=== PATIENT | male | born 1985 | race Hispanic/Latino ===

== ENCOUNTER 2019-01-21 05:25 | Day surgery (SDC) | payer MEDICAID ==
[~2019-01-21] VITALS: Ht 154.9 cm; Wt 49.9 kg
[~2019-01-21 05:25] MED LIST: NAPR-1023 PO; PANT40TA PO; SUCR1ORA5 PO
[2019-01-21] MEDS ORDERED: SODIUM CHLORIDE 0.9% 1000ML 1,000 ML IV ONE (05:51)
[2019-01-21 06:00] VITALS: BP 102/74
[2019-01-21 08:24] VITALS: BP 95/53
[2019-01-21 08:30] VITALS: BP 114/70
[2019-01-21 08:39] VITALS: BP 109/69
== END 2019-01-21 08:56 | disposition home or self-care (01) ==
LOC: DAH 05:25 → ENDO 05:25
PROVIDERS: ATTEND Internal Medicine
DX: K29.50 Unspecified chronic gastritis without bleeding (principal); K21.0 Gastro-esophageal reflux disease with esophagitis; K44.9 Diaphragmatic hernia without obstruction or gangrene; K31.89 Other diseases of stomach and duodenum; M81.0 Age-related osteoporosis without current pathological fracture; G80.9 Cerebral palsy, unspecified; K21.9 Gastro-esophageal reflux disease without esophagitis; F41.9 Anxiety disorder, unspecified; Z79.899 Other long term (current) drug therapy; M41.9 Scoliosis, unspecified
CPT/HCPCS: 43239; 88305; J7030

== ENCOUNTER 2023-03-05 07:00 | Day surgery (SDC) | payer MEDICAID ==
[2023-03-05] VITALS (11 sets, daily range): BP systolic 81–110; BP diastolic 49–76; PULSE 60–81; RESP 15–21
[~2023-03-05] VITALS: Ht 152.4 cm; Wt 61.7 kg
[~2023-03-05 07:00] MED LIST changes: -NAPR-1023 PO; +SUCR1ORA15 PO; -SUCR1ORA5 PO
[2023-03-05] MEDS ORDERED: PROPOFOL 10 MG/ML 20ML VIAL IV ONE (10:02)
== END 2023-03-05 11:30 | disposition home or self-care (01) ==
LOC: DAH 07:00
PROVIDERS: ATTEND Internal Medicine Gastroenterology
DX: K21.00 Gastro-esophageal reflux disease with esophagitis, without bleeding (principal); K44.9 Diaphragmatic hernia without obstruction or gangrene; K29.70 Gastritis, unspecified, without bleeding; K59.00 Constipation, unspecified; F41.9 Anxiety disorder, unspecified; M81.0 Age-related osteoporosis without current pathological fracture; G50.9 Disorder of trigeminal nerve, unspecified; M41.9 Scoliosis, unspecified; Z98.890 Other specified postprocedural states; Z79.899 Other long term (current) drug therapy
CPT/HCPCS: 43239; J3490; A4620; A4215 ×2; A4223; A7002; A4222; A4221; A4663; A4216; J7030; A4606; J2704

== ENCOUNTER 2023-05-28 05:40 | Day surgery (SDC) | payer MEDICAID ==
[2023-05-28] VITALS (11 sets, daily range): BP systolic 92–107; BP diastolic 58–67; PULSE 61–73; RESP 12–16
[~2023-05-28] VITALS: Ht 152.4 cm; Wt 61.2 kg
[~2023-05-28 05:40] MED LIST changes: -SUCR1ORA15 PO; +SUCR1TAB2 PO
[2023-05-28] MEDS ORDERED: 0.9%NACL 1000ML 1,000 ML IV ONE (06:40)
[2023-05-28] MEDS ORDERED: PROPOFOL 10 MG/ML 20ML VIAL IV ONE (07:34)
== END 2023-05-28 09:25 | disposition home or self-care (01) ==
LOC: DAH 05:40 → ENDO 05:40
PROVIDERS: ATTEND Internal Medicine Gastroenterology
DX: K21.00 Gastro-esophageal reflux disease with esophagitis, without bleeding (principal); K44.9 Diaphragmatic hernia without obstruction or gangrene; K29.50 Unspecified chronic gastritis without bleeding; F41.9 Anxiety disorder, unspecified; M81.0 Age-related osteoporosis without current pathological fracture; K59.00 Constipation, unspecified; G80.9 Cerebral palsy, unspecified; M41.9 Scoliosis, unspecified
CPT/HCPCS: 43239; J7030 ×2; J3490; A4620; A4215 ×3; A4223; A7002; A4222; A4221; A4663; A4606; J2704

== ENCOUNTER 2023-09-15 05:45 | Day surgery (SDC) | payer MEDICAID ==
[~2023-09-15] VITALS: Ht 154.9 cm; Wt 61.7 kg
[2023-09-15] VITALS (10 sets, daily range): BP systolic 80–114; BP diastolic 48–73; PULSE 16–80; RESP 14–18
[2023-09-15] MEDS: 0.9%NACL 1000ML 1,000 ML IV ONE (06:24)
[2023-09-15] MEDS ORDERED: PROPOFOL 10 MG/ML 20ML VIAL IV ONE (07:08)
[2023-09-15] MEDS ORDERED: LIDOCAINE HCL 1% 20 ML VIAL ONE (07:08)
== END 2023-09-15 08:30 | disposition home or self-care (01) ==
LOC: DAH 05:45 → ENDO 05:45
PROVIDERS: ATTEND Internal Medicine Gastroenterology
DX: K21.00 Gastro-esophageal reflux disease with esophagitis, without bleeding (principal); K29.50 Unspecified chronic gastritis without bleeding; K31.7 Polyp of stomach and duodenum; K44.9 Diaphragmatic hernia without obstruction or gangrene; R14.0 Abdominal distension (gaseous); K59.00 Constipation, unspecified; G80.9 Cerebral palsy, unspecified; M41.9 Scoliosis, unspecified; F41.9 Anxiety disorder, unspecified; M81.0 Age-related osteoporosis without current pathological fracture; Z82.49 Family history of ischemic heart disease and other diseases of the circulatory system; Z83.3 Family history of diabetes mellitus; Z79.899 Other long term (current) drug therapy; Z98.890 Other specified postprocedural states
CPT/HCPCS: 43251; 43239; J7030 ×2; J3490; A4620; A4215 ×2; A4223; A7002; A4222; A4221; A4663; A4606; J2704

== ENCOUNTER 2024-01-19 05:36 | Day surgery (SDC) | payer MEDICAID ==
[2024-01-19] VITALS (11 sets, daily range): BP systolic 90–113; BP diastolic 56–69; PULSE 60–87; RESP 15–16
[~2024-01-19] VITALS: Ht 157.5 cm; Wt 61.2 kg
[2024-01-19] MEDS: 0.9%NACL 1000ML 1,000 ML IV ONE (06:27)
[2024-01-19] MEDS ORDERED: proPOFol 10 MG/ML 20ML VIAL IV ONE (07:31)
[2024-01-19] MEDS ORDERED: EPINEPHrine PF 1MG (1:1,000) 1 MG/ML AMP ONE (07:40)
== END 2024-01-19 08:50 | disposition home or self-care (01) ==
LOC: DAH 05:36 → EDSTATUS 14:00
PROVIDERS: ATTEND Internal Medicine Gastroenterology
DX: K21.00 Gastro-esophageal reflux disease with esophagitis, without bleeding (principal); K29.70 Gastritis, unspecified, without bleeding; K44.9 Diaphragmatic hernia without obstruction or gangrene; K22.89 Other specified disease of esophagus; M81.0 Age-related osteoporosis without current pathological fracture; M41.9 Scoliosis, unspecified; R14.0 Abdominal distension (gaseous); K59.00 Constipation, unspecified; F41.9 Anxiety disorder, unspecified; G80.9 Cerebral palsy, unspecified; Z79.899 Other long term (current) drug therapy
CPT/HCPCS: 43239; J7030 ×2; J0171; J3490; A4620; A4215; A4223; A4222; A4221; A4663; A4606; J2704